=== PATIENT | female | born 1940 | race Caucasian/White ===

== ENCOUNTER 2024-08-07 14:27 | Inpatient (IN) | payer MEDICARE ==
[2024-08-07] VITALS (9 sets, daily range): BP systolic 90–129; BP diastolic 46–88; PULSE 79–101; RESP 18–26; TEMP 99.1–99.9; O2SAT 97–100
[~2024-08-07] VITALS: Ht 152.4 cm; Wt 105.8 kg
[2024-08-07 15:43] LABS: BASOPHILS % 0.2 % (0.0-1.0); HEMATOCRIT 31.8 % (34.2-44.1); HEMOGLOBIN 10.6 g/dL (12.0-16.0); LYMPHOCYTES # (AUTO) 1.1 (1.0-3.2); LYMPHOCYTES % 20.7 % (18.0-39.1); MEAN CORPUSCULAR HEMOGLOBIN 29.9 pg (28-32); MEAN CORPUSCULAR HGB CONC 33.3 g/dL (31-35); MEAN CORPUSCULAR VOLUME 89.8 fL (81-99); MONOCYTES # (AUTO) 0.7 (0.2-0.8); NEUTROPHILS # (AUTO) 3.3 (2.1-6.9); NEUTROPHILS % 64.7 % (38.7-80.0); RED BLOOD COUNT 3.54 x10e6/uL (3.6-5.1); RED CELL DISTRIBUTION WIDTH 14.7 % (11.7-14.4); WHITE BLOOD COUNT 5.13 x10e3/uL (4.8-10.8)
[2024-08-07 15:47] LABS: PLATELET COUNT 90 x10e3/uL (140-360)
[2024-08-07 15:49] LABS: INR 1.16; PARTIAL THROMBOPLASTIN TIME 41.7 seconds (23.8-35.5); PROTHROMBIN TIME 15.8 seconds (11.9-14.5)
[2024-08-07 15:56] LABS: ALBUMIN 3.3 g/dL (3.5-5.0); ALBUMIN/GLOBULIN RATIO 1.4 (0.8-2.0); ANION GAP 15.9 mmol/L (8-16); CALCIUM 8.4 mg/dL (8.4-10.2); CREATININE, SERUM 1.97 mg/dL (0.57-1.11); POTASSIUM 3.9 mmol/L (3.5-5.1); TOTAL PROTEIN 5.6 g/dL (6.5-8.1)
[2024-08-07 16:01] LABS: CORONAVIRUS COVID-19 AG NEGATIVE (NEGATIVE); INFLUENZA A AG NEGATIVE (NEGATIVE); INFLUENZA B AG NEGATIVE (NEGATIVE); TROPONIN I 0.046 ng/mL (0-0.300)
[2024-08-07 16:30] LABS: CLARITY,URINE CLOUDY (CLEAR); COLOR,URINE AMBER (YELLOW); GLUCOSE, URINE NEGATIVE (NEGATIVE); LEUKOCYTE ESTERASE ,URINE TRACE (NEGATIVE); NITRITE,URINE NEGATIVE (NEGATIVE); PH,URINE 5.5 (5 - 7); PROTEIN,URINE DIPSTICK 2+ (NEGATIVE)
[2024-08-07 16:31] LABS: BILIRUBIN,URINE MODERATE (NEGATIVE); KETONES,URINE NEGATIVE (NEGATIVE); URINE UROBILINOGEN 2 mg/dL (0.2 - 1)
[2024-08-07] MEDS: SODIUM CHLORIDE 0.9% 1000ML 1,000 ML IV ONE (16:31)
[2024-08-07] MEDS: ACETAMINOPHEN 1000 MG/100 ML IV ONE (16:31)
[2024-08-07 16:43] LABS: AMORPHOUS SEDIMENT,URINE MODERATE; BACTERIA,URINE MANY /HPF; RBC,URINE 0-5 /HPF (0-5); TRANSITIONAL EPI CELLS,URINE FEW
[2024-08-07] MEDS ORDERED: ONDANSETRON HCL INJ 2MG/ML 2ML 2 MG/ML VIAL IV PRN (19:15)
[2024-08-07] MEDS: Vancomycin IV 1 GM in SODIUM CHLORIDE 0.9% 250ML 250 ML IV ONE (19:16)
[2024-08-07] MEDS: SODIUM CHLORIDE 0.9% 500ML 500 ML IV ONE (19:20)
[2024-08-07] MEDS ORDERED: MELATONIN 3 MG TAB PO PRN (21:30)
[2024-08-07] MEDS ORDERED: MAGNESIUM/ALUMINUM/SIMETHICONE 30 ML UDC PO PRN (21:30)
[2024-08-07] MEDS ORDERED: ALBUTEROL SULF 0.083% NEB SOLN 3 ML NEB NEB PRN (21:30)
[2024-08-07] MEDS ORDERED: DOCUSATE SODIUM 100 MG CAP PO PRN (21:30)
[2024-08-07] MEDS: METHYLPREDNISOLONE SOD SUCC 40 MG/ML VIAL 1ML IV SCH (22:37)
[2024-08-07] MEDS: IPRATROPIUM BROMIDE 0.02% 2.5 ML NEB NEB SCH (23:30)
[2024-08-08] VITALS (98 sets, daily range): BP systolic 81–136; BP diastolic 41–91; PULSE 36–139; RESP 14–34; TEMP 96.6–101.5; O2SAT 89–100
[2024-08-08] MEDS: ACETAMINOPHEN 325 MG TAB PO PRN (00:11)
[2024-08-08] MEDS: NOREPINEPHRINE 8 MG/D5W 250 ML 250 ML IV SCH (02:36)
[2024-08-08 02:43] LABS: TROPONIN I 0.03 ng/mL (0-0.300)
[2024-08-08 06:45] LABS: BASOPHILS % 0.1 % (0.0-1.0); HEMATOCRIT 32.4 % (34.2-44.1); HEMOGLOBIN 10.9 g/dL (12.0-16.0); LYMPHOCYTES # (AUTO) 1.1 (1.0-3.2); LYMPHOCYTES % 15.2 % (18.0-39.1); MEAN CORPUSCULAR HEMOGLOBIN 30.4 pg (28-32); MEAN CORPUSCULAR HGB CONC 33.6 g/dL (31-35); MEAN CORPUSCULAR VOLUME 90.5 fL (81-99); MONOCYTES # (AUTO) 0.3 (0.2-0.8); MONOCYTES % 3.7 % (4.4-11.3); NEUTROPHILS # (AUTO) 5.8 (2.1-6.9); NEUTROPHILS % 80.7 % (38.7-80.0); PLATELET COUNT 92 x10e3/uL (140-360); RED BLOOD COUNT 3.58 x10e6/uL (3.6-5.1); WHITE BLOOD COUNT 7.12 x10e3/uL (4.8-10.8)
[2024-08-08 07:27] LABS: TROPONIN I 0.024 ng/mL (0-0.300)
[2024-08-08 07:40] LABS: T3 UPTAKE 28.58 % (22.5-37.0); THYROID STIMULATING HORMONE 1.316 uIU/mL (0.350-4.940)
[2024-08-08 08:30] LABS: ALBUMIN 3.1 g/dL (3.5-5.0); ALBUMIN/GLOBULIN RATIO 1.2 (0.8-2.0); BILIRUBIN,TOTAL 0.9 mg/dL (0.2-1.2); CALCIUM 8.1 mg/dL (8.4-10.2); CREATININE, SERUM 1.8 mg/dL (0.57-1.11); TOTAL PROTEIN 5.6 g/dL (6.5-8.1)
[2024-08-08] MEDS: ASPIRIN 81 MG ENTERIC COATED PO SCH (08:34)
[2024-08-08] MEDS: MULTIVITAMINS/MINERALS TAB PO SCH (08:34)
[2024-08-08] MEDS: HEPARIN SOD (PORCINE) 5,000 UNIT/ML VIAL SC SCH (08:35)
[2024-08-08 08:45] LABS: T4 (THYROXINE) 6.46 ug/dL (4.5-10.9)
[2024-08-08] MEDS: SODIUM BICARBONATE 8.4% SYRING 50 ML in SODIUM CHLORIDE 0.45% 1,000 ML IV ONE (10:12)
[2024-08-08 16:36] LABS: TROPONIN I 0.013 ng/mL (0-0.300)
[2024-08-08] MEDS: GUAIFENESIN/CODEINE 5 ML LIQD PO PRN (17:28)
[2024-08-08] MEDS ORDERED: DEXTROSE 50% SYRINGE 50 ML IV PRN (18:30)
[2024-08-08] MEDS: INSULIN LISPRO 100 UNIT/1 ML 3ML VIAL SQ SCH (20:35)
[2024-08-08] MEDS: CEPACOL SORE THROAT LOZENGES PO PRN (21:23)
[2024-08-09] VITALS (70 sets, daily range): BP systolic 72–126; BP diastolic 39–97; PULSE 50–112; RESP 15–39; TEMP 96.7–98.1; O2SAT 87–100
[2024-08-09 06:58] LABS: HEMATOCRIT 31.9 % (34.2-44.1); HEMOGLOBIN 10.8 g/dL (12.0-16.0); LYMPHOCYTES # (AUTO) 1.1 (1.0-3.2); LYMPHOCYTES % 17.5 % (18.0-39.1); MEAN CORPUSCULAR HEMOGLOBIN 30.1 pg (28-32); MEAN CORPUSCULAR HGB CONC 33.9 g/dL (31-35); MEAN CORPUSCULAR VOLUME 88.9 fL (81-99); MONOCYTES # (AUTO) 0.4 (0.2-0.8); MONOCYTES % 6.4 % (4.4-11.3); NEUTROPHILS # (AUTO) 4.9 (2.1-6.9); NEUTROPHILS % 75.6 % (38.7-80.0); PLATELET COUNT 117 x10e3/uL (140-360); RED BLOOD COUNT 3.59 x10e6/uL (3.6-5.1); RED CELL DISTRIBUTION WIDTH 14.6 % (11.7-14.4); WHITE BLOOD COUNT 6.52 x10e3/uL (4.8-10.8)
[2024-08-09 07:35] LABS: ALBUMIN 2.7 g/dL (3.5-5.0); ALBUMIN/GLOBULIN RATIO 1.1 (0.8-2.0); ANION GAP 15.8 mmol/L (8-16); BILIRUBIN,TOTAL 0.4 mg/dL (0.2-1.2); CALCIUM 8.1 mg/dL (8.4-10.2); CREATININE, SERUM 1.42 mg/dL (0.57-1.11); POTASSIUM 3.8 mmol/L (3.5-5.1); TOTAL PROTEIN 5.1 g/dL (6.5-8.1)
[2024-08-09] MEDS: POTASSIUM CHLORIDE 20MEQ/100ML 100 ML IV ONE (08:03)
[2024-08-09] MEDS: MUPIROCIN 2% OINT 22 GM TUBE TOP SCH (08:04)
[2024-08-10] VITALS (28 sets, daily range): BP systolic 98–160; BP diastolic 47–124; PULSE 64–114; RESP 16–22; TEMP 96.7–101.1; O2SAT 91–99
[2024-08-10 06:41] LABS: HEMATOCRIT 30.1 % (34.2-44.1); HEMOGLOBIN 9.9 g/dL (12.0-16.0); LYMPHOCYTES # (AUTO) 0.7 (1.0-3.2); LYMPHOCYTES % 17.6 % (18.0-39.1); MEAN CORPUSCULAR HEMOGLOBIN 29.8 pg (28-32); MEAN CORPUSCULAR HGB CONC 32.9 g/dL (31-35); MEAN CORPUSCULAR VOLUME 90.7 fL (81-99); MONOCYTES # (AUTO) 0.4 (0.2-0.8); MONOCYTES % 9.8 % (4.4-11.3); NEUTROPHILS # (AUTO) 2.7 (2.1-6.9); NEUTROPHILS % 72.1 % (38.7-80.0); PLATELET COUNT 111 x10e3/uL (140-360); RED BLOOD COUNT 3.32 x10e6/uL (3.6-5.1); RED CELL DISTRIBUTION WIDTH 14.7 % (11.7-14.4); WHITE BLOOD COUNT 3.76 x10e3/uL (4.8-10.8)
[2024-08-10 07:26] LABS: ALBUMIN 2.7 g/dL (3.5-5.0); ALBUMIN/GLOBULIN RATIO 1.2 (0.8-2.0); ANION GAP 13.9 mmol/L (8-16); BILIRUBIN,TOTAL 0.3 mg/dL (0.2-1.2); CALCIUM 8.2 mg/dL (8.4-10.2); CREATININE, SERUM 1.33 mg/dL (0.57-1.11); POTASSIUM 3.9 mmol/L (3.5-5.1); TOTAL PROTEIN 4.9 g/dL (6.5-8.1)
[2024-08-10] MEDS ORDERED: ARICEPT10 MG PO (08:21)
[2024-08-10] MEDS ORDERED: FAMOTIDINE20 MG PO (08:21)
[2024-08-10] MEDS ORDERED: LOTENSIN20 MG PO (08:21)
[2024-08-10] MEDS ORDERED: ASPIRIN CHEW81 MG PO (08:21)
[2024-08-10] MEDS ORDERED: TORSEMIDE20 MG PO (08:21)
[2024-08-10] MEDS ORDERED: SYNTHROID50 MCG PO (08:21)
[2024-08-11] VITALS (40 sets, daily range): BP systolic 84–138; BP diastolic 43–80; PULSE 20–160; RESP 16–38; TEMP 98.3–100.1; O2SAT 89–100
[2024-08-11 06:50] LABS: HEMATOCRIT 29.5 % (34.2-44.1); HEMOGLOBIN 9.7 g/dL (12.0-16.0); LYMPHOCYTES # (AUTO) 0.6 (1.0-3.2); LYMPHOCYTES % 19.6 % (18.0-39.1); MEAN CORPUSCULAR HEMOGLOBIN 29.9 pg (28-32); MEAN CORPUSCULAR HGB CONC 32.9 g/dL (31-35); MONOCYTES # (AUTO) 0.3 (0.2-0.8); MONOCYTES % 10.6 % (4.4-11.3); NEUTROPHILS # (AUTO) 2.2 (2.1-6.9); NEUTROPHILS % 68.6 % (38.7-80.0); PLATELET COUNT 109 x10e3/uL (140-360); RED BLOOD COUNT 3.24 x10e6/uL (3.6-5.1); WHITE BLOOD COUNT 3.22 x10e3/uL (4.8-10.8)
[2024-08-11 07:23] LABS: ANION GAP 14.1 mmol/L (8-16); CALCIUM 8.1 mg/dL (8.4-10.2); CREATININE, SERUM 1.16 mg/dL (0.57-1.11); POTASSIUM 4.1 mmol/L (3.5-5.1)
[2024-08-11 11:12] LABS: EOSINOPHILS % (MANUAL) 1 % (0-7); LYMPHOCYTES % (MANUAL) 25 % (19-48); MONOCYTES % (MANUAL) 3 % (3.4-9.0); NEUTROPHILS % (MANUAL) 68 % (40-74); PLATELET ESTIMATE SLIGHTLY DECREASED; PLATELET MORPHOLOGY COMMENT NORMAL; REACTIVE LYMPHOCYTES 3
[2024-08-12] VITALS (15 sets, daily range): BP systolic 115–135; BP diastolic 47–53; PULSE 66–92; RESP 17–26; TEMP 98.1–100.9; O2SAT 95–100
[2024-08-12 13:43] LABS: BASOPHILS % 0.3 % (0.0-1.0); EOSINOPHILS % 0.6 % (0.0-6.0); HEMATOCRIT 28.3 % (34.2-44.1); LYMPHOCYTES # (AUTO) 0.8 (1.0-3.2); LYMPHOCYTES % 22.7 % (18.0-39.1); MEAN CORPUSCULAR HEMOGLOBIN 29.5 pg (28-32); MEAN CORPUSCULAR HGB CONC 31.8 g/dL (31-35); MEAN CORPUSCULAR VOLUME 92.8 fL (81-99); MONOCYTES # (AUTO) 0.3 (0.2-0.8); MONOCYTES % 7.9 % (4.4-11.3); NEUTROPHILS # (AUTO) 2.3 (2.1-6.9); NEUTROPHILS % 67.6 % (38.7-80.0); PLATELET COUNT 101 x10e3/uL (140-360); RED BLOOD COUNT 3.05 x10e6/uL (3.6-5.1); RED CELL DISTRIBUTION WIDTH 15.1 % (11.7-14.4); WHITE BLOOD COUNT 3.43 x10e3/uL (4.8-10.8)
[2024-08-12 14:09] LABS: ALBUMIN 2.5 g/dL (3.5-5.0); ALBUMIN/GLOBULIN RATIO 1.2 (0.8-2.0); ANION GAP 13.1 mmol/L (8-16); BILIRUBIN,TOTAL 0.3 mg/dL (0.2-1.2); CALCIUM 8.1 mg/dL (8.4-10.2); CREATININE, SERUM 0.88 mg/dL (0.57-1.11); POTASSIUM 4.1 mmol/L (3.5-5.1); TOTAL PROTEIN 4.6 g/dL (6.5-8.1)
[2024-08-13] VITALS (10 sets, daily range): BP systolic 114–144; BP diastolic 48–54; PULSE 65–87; RESP 16–22; TEMP 98–98.7; O2SAT 93–100
[2024-08-13] MEDS: GUAIFENESIN/DEXTROMETHORPHAN LIQD 5 ML UDC PO PRN (23:22)
[2024-08-14] VITALS (11 sets, daily range): BP systolic 124–134; BP diastolic 48–62; PULSE 63–109; RESP 16–20; TEMP 97–99.3; O2SAT 94–100
[2024-08-14] MEDS: METHYLPREDNISOLONE SOD SUCC 40 MG/ML VIAL 1ML IV ONE (13:48)
[2024-08-14 14:20] LABS: BASOPHILS % 0.3 % (0.0-1.0); EOSINOPHILS % 1.1 % (0.0-6.0); HEMOGLOBIN 8.7 g/dL (12.0-16.0); LYMPHOCYTES # (AUTO) 0.8 (1.0-3.2); LYMPHOCYTES % 22.9 % (18.0-39.1); MEAN CORPUSCULAR HEMOGLOBIN 29.6 pg (28-32); MEAN CORPUSCULAR HGB CONC 32.2 g/dL (31-35); MEAN CORPUSCULAR VOLUME 91.8 fL (81-99); MONOCYTES # (AUTO) 0.4 (0.2-0.8); MONOCYTES % 10.3 % (4.4-11.3); NEUTROPHILS # (AUTO) 2.3 (2.1-6.9); NEUTROPHILS % 64.8 % (38.7-80.0); PLATELET COUNT 103 x10e3/uL (140-360); RED BLOOD COUNT 2.94 x10e6/uL (3.6-5.1); RED CELL DISTRIBUTION WIDTH 14.9 % (11.7-14.4)
[2024-08-14 14:46] LABS: ALBUMIN 2.5 g/dL (3.5-5.0); ANION GAP 11.9 mmol/L (8-16); BILIRUBIN,TOTAL 0.4 mg/dL (0.2-1.2); CALCIUM 8.4 mg/dL (8.4-10.2); CREATININE, SERUM 0.84 mg/dL (0.57-1.11); POTASSIUM 3.9 mmol/L (3.5-5.1)
[2024-08-14 17:21] LABS: LYMPHOCYTES % (MANUAL) 21 % (19-48); MONOCYTES % (MANUAL) 5 % (3.4-9.0); NEUTROPHILS % (MANUAL) 74 % (40-74)
[2024-08-14 17:22] LABS: SMUDGE CELLS FEW
[2024-08-14 17:23] LABS: PLATELET ESTIMATE SLIGHTLY DECREASED; PLATELET MORPHOLOGY COMMENT NORMAL; RBC MORPHOLOGY COMMENT NORMAL
[2024-08-14] MEDS: GUAIFENESIN/CODEINE 5 ML LIQD PO PRN (22:22)
[2024-08-15] VITALS (11 sets, daily range): BP systolic 115–132; BP diastolic 51–66; PULSE 51–71; RESP 16–20; TEMP 97–98.6; O2SAT 96–100
[2024-08-15] MEDS: METHYLPREDNISOLONE SOD SUCC 40 MG/ML VIAL 1ML IV ONE (13:06)
[2024-08-15] MEDS: METHYLPREDNISOLONE SOD SUCC 125 MG/2ML VIAL ONE (13:10)
[2024-08-16] VITALS (11 sets, daily range): BP systolic 128–147; BP diastolic 56–66; PULSE 50–81; RESP 16–22; TEMP 97.4–98; O2SAT 96–100
[2024-08-16 07:15] LABS: HEMATOCRIT 28.5 % (34.2-44.1); LYMPHOCYTES # (AUTO) 0.6 (1.0-3.2); MEAN CORPUSCULAR HEMOGLOBIN 29.4 pg (28-32); MEAN CORPUSCULAR HGB CONC 31.6 g/dL (31-35); MEAN CORPUSCULAR VOLUME 93.1 fL (81-99); MONOCYTES # (AUTO) 0.2 (0.2-0.8); MONOCYTES % 2.9 % (4.4-11.3); NEUTROPHILS # (AUTO) 4.4 (2.1-6.9); NEUTROPHILS % 83.2 % (38.7-80.0); RED BLOOD COUNT 3.06 x10e6/uL (3.6-5.1); RED CELL DISTRIBUTION WIDTH 14.4 % (11.7-14.4); WHITE BLOOD COUNT 5.25 x10e3/uL (4.8-10.8)
[2024-08-16 07:24] LABS: PLATELET COUNT 130 x10e3/uL (140-360)
[2024-08-16 07:48] LABS: ALBUMIN 2.8 g/dL (3.5-5.0); ALBUMIN/GLOBULIN RATIO 1.1 (0.8-2.0); ANION GAP 14.4 mmol/L (8-16); BILIRUBIN,TOTAL 0.4 mg/dL (0.2-1.2); CALCIUM 8.4 mg/dL (8.4-10.2); CREATININE, SERUM 0.98 mg/dL (0.57-1.11); POTASSIUM 4.4 mmol/L (3.5-5.1); TOTAL PROTEIN 5.3 g/dL (6.5-8.1)
[2024-08-16] MEDS: FUROSEMIDE INJ 10 MG/ML 4 ML VIAL IV ONE ×2 (18:14→18:42)
[2024-08-17] VITALS (9 sets, daily range): BP systolic 128–141; BP diastolic 59–68; PULSE 56–85; RESP 17–20; TEMP 97.6–97.9; O2SAT 95–99
[2024-08-18] VITALS (11 sets, daily range): BP systolic 129–144; BP diastolic 61–97; PULSE 72–97; RESP 18–20; TEMP 97.2–98.6; O2SAT 93–100
[2024-08-18 06:30] LABS: ANION GAP 13.9 mmol/L (8-16); CALCIUM 8.3 mg/dL (8.4-10.2); CREATININE, SERUM 0.87 mg/dL (0.57-1.11); POTASSIUM 3.9 mmol/L (3.5-5.1)
[2024-08-19] VITALS (11 sets, daily range): BP systolic 134–173; BP diastolic 53–80; PULSE 68–83; RESP 18–22; TEMP 97.2–99.3; O2SAT 92–100
[2024-08-19] MEDS: HYDRALAZINE HCL 20 MG/ML VIAL IV PRN (05:51)
[2024-08-20] VITALS (11 sets, daily range): BP systolic 122–149; BP diastolic 50–73; PULSE 71–105; RESP 16–22; TEMP 97.2–98.5; O2SAT 94–100
[2024-08-21] VITALS (9 sets, daily range): BP systolic 123–158; BP diastolic 59–81; PULSE 61–101; RESP 18–22; TEMP 97.7–98.5; O2SAT 92–100
[2024-08-22] VITALS (7 sets, daily range): BP systolic 120–153; BP diastolic 56–63; PULSE 63–86; RESP 16–20; TEMP 97.3–97.6; O2SAT 92–96
== END 2024-08-22 20:30 | disposition home health service (06) | DRG 871 ==
LOC: ER 15:35 → ERHOLD 19:11 → ICU 22:03 → MED/SURG2 08-12 05:53
PROVIDERS: ADMIT Family Medicine; ATTEND Family Medicine
PROC: 3E0333Z Introduction of Anti-inflammatory into Peripheral Vein, Percutaneous Approach (ICD-10-PCS; principal; 2024-08-07)
PROC: 02HV33Z Insertion of Infusion Device into Superior Vena Cava, Percutaneous Approach (ICD-10-PCS; 2024-08-07)
PROC: 3E033XZ Introduction of Vasopressor into Peripheral Vein, Percutaneous Approach (ICD-10-PCS; 2024-08-07)
DX: A41.50 Gram-negative sepsis, unspecified (principal); I13.0 Hypertensive heart and chronic kidney disease with heart failure and stage 1 through stage 4 chronic kidney disease, or unspecified chronic kidney disease; I50.33 Acute on chronic diastolic (congestive) heart failure; R65.21 Severe sepsis with septic shock; J96.01 Acute respiratory failure with hypoxia; N17.0 Acute kidney failure with tubular necrosis; J69.0 Pneumonitis due to inhalation of food and vomit; E66.2 Morbid (severe) obesity with alveolar hypoventilation; Z68.41 Body mass index [BMI] 40.0-44.9, adult; N39.0 Urinary tract infection, site not specified; B96.1 Klebsiella pneumoniae [K. pneumoniae] as the cause of diseases classified elsewhere; R62.7 Adult failure to thrive; D69.59 Other secondary thrombocytopenia; E11.22 Type 2 diabetes mellitus with diabetic chronic kidney disease; N18.31 Chronic kidney disease, stage 3a; E86.0 Dehydration; F03.90 Unspecified dementia, unspecified severity, without behavioral disturbance, psychotic disturbance, mood disturbance, and anxiety; J20.9 Acute bronchitis, unspecified; R53.81 Other malaise; D64.9 Anemia, unspecified; E03.9 Hypothyroidism, unspecified; M19.90 Unspecified osteoarthritis, unspecified site; Z11.52 Encounter for screening for COVID-19; Z79.82 Long term (current) use of aspirin; Z79.890 Hormone replacement therapy; Z90.49 Acquired absence of other specified parts of digestive tract; Z87.891 Personal history of nicotine dependence
CPT/HCPCS: 36415; 71045; 71250; 74176; 76770; 80048; 80053; 81001; 82550; 82948; 83036; 83605; 83735; 83880; 84436; 84443; 84479; 84484; 85025; 85610; 85730; 87040; 87086; 87186; 87207; 93005; 93306; 93970; 94640; 94799; 99252; 99284; J0360; J1644; J1938; J2543; J2919; J3480; J7030; J7040; J7050